=== PATIENT | female | born 1930 | race Caucasian/White ===

== ENCOUNTER → 2016-11-23 | Outpatient (CLI) | payer OTHER ==
[~2016-11-23] MED LIST: ALENDRONATE SOD70 MG PO; ANTIVERT25 MG PO; CARDIZEM CD240 MG PO; CARVEDILOL6.25 MG PO; COLACE100 MG PO; COREG3.125 MG PO; COZAAR100 MG PO; FENTANYL PA12 MCG/H1 TRANSDERM; FENTANYL PA25 MCG/HR; FENTANYL PATCH75 MCG TRANSDERM; KEFLEX500 MG PO; MIRALAX17 GM PO; NORCO 5-325 TA1 EACH PO; NORVASC5 MG PO; PAXIL10 MG; PAXIL10 MG PO; PERCOCET 5-3251 EACH PO; SENNA PO; TRAMADOL 50 MG50 MG PO; VITAMIN D1000 UNI1 PO; VITAMIN D2000 UNIT PO; ZANTAC 150MG T150 MG PO; ZOFRAN ODT4 MG PO; ZOSTAVAX V19400 UNIT SQ
== END ==
LOC: HYPER 11-17 08:54
DX: S81.812A Laceration without foreign body, left lower leg, initial encounter (principal); I10 Essential (primary) hypertension; K21.9 Gastro-esophageal reflux disease without esophagitis; Z85.3 Personal history of malignant neoplasm of breast; Z90.710 Acquired absence of both cervix and uterus; Z72.89 Other problems related to lifestyle; X58.XXXA Exposure to other specified factors, initial encounter; Y93.89 Activity, other specified; Y92.89 Other specified places as the place of occurrence of the external cause; Y99.8 Other external cause status

== ENCOUNTER → 2016-12-21 | Outpatient (CLI) | payer OTHER | LOC: HYPER 07:20 | DX: S81.802D Unspecified open wound, left lower leg, subsequent encounter (principal); I10 Essential (primary) hypertension; K29.70 Gastritis, unspecified, without bleeding; M17.10 Unilateral primary osteoarthritis, unspecified knee; F41.8 Other specified anxiety disorders; Z98.49 Cataract extraction status, unspecified eye; Z90.710 Acquired absence of both cervix and uterus; Z85.3 Personal history of malignant neoplasm of breast; Z72.89 Other problems related to lifestyle ==

== ENCOUNTER 2018-02-09 23:21 | Inpatient (IN) | payer OTHER ==
[~2018-02-09] VITALS: Ht 152.4 cm; Wt 54.4 kg
[~2018-02-09 23:21] MED LIST changes: +COZAAR 25 MG TA25 MG PO; -COZAAR100 MG PO; -VITAMIN D2000 UNIT PO
[2018-02-09 23:24] VITALS: BP 118/52
[2018-02-10] LABS: ABSOLUTE NEUTROPHILS 4.6 thou/uL (1.4-8.2); BASOPHILS 0.7 % (0.0-2.0); HEMATOCRIT 31.8 % (37.0-47.0); HEMOGLOBIN 10.8 gm/dL (12.0-15.0); LYMPHOCYTES 4.8 % (24.0-44.0); MCH 28.7 pg (26.0-34.0); MCV 84.2 fL (80.0-100.0); MONOCYTES 11.3 % (1.0-8.0); PLATELET COUNT 250 thou/uL (150-400); POLYS 81.2 % (36.0-66.0); RBC 3.77 mil/uL (4.20-5.00); WBC 5.7 thou/uL (4.0-11.0)
[2018-02-10 00:07] LABS: POTASSIUM 4.6 mmol/L (3.5-5.1)
[2018-02-10 00:13] LABS: ALBUMIN 3.2 g/dL (3.4-5.0); TOTAL BILIRUBIN 0.4 mg/dL (<0.1-1.0); TOTAL PROTEIN 6.5 g/dL (6.4-8.2)
[2018-02-10] MEDS ORDERED: ACIDOPHILUS1 EAC4 PO (00:45)
[2018-02-10] MEDS ORDERED: FLOMAX0.4 MG PO (00:46)
[2018-02-10] MEDS ORDERED: LIPITOR 20 MG T20 M1 PO (00:46)
[2018-02-10] MEDS ORDERED: NIFEDIPINE ER30 MG PO (01:13)
[2018-02-10] MEDS ORDERED: NEURONTIN100 MG PO (01:13)
[2018-02-10] MEDS ORDERED: PLAVIX 75 MG TA75 M1 PO (01:14)
[2018-02-10] MEDS ORDERED: SODIUM CHLORIDE PO (01:15)
[2018-02-10] MEDS ORDERED: SODIUM CHLORIDE TAB PO (01:15)
[2018-02-10] MEDS ORDERED: TYLENOL325 MG PO (01:16)
[2018-02-10] MEDS ORDERED: VITAMIN B-12500 MCG PO (02:09)
[2018-02-10] MEDS ORDERED: PREMARIN0.625 MG PO (02:10)
[2018-02-10] MEDS ORDERED: VOLTAREN GEL 1100 G1 TRANSDERM (02:10)
[2018-02-10] MEDS ORDERED: PROLOPRIM100 MG (02:11)
[2018-02-10 02:13] VITALS: BP 124/54
[2018-02-10 03:02] VITALS: BP 123/55
[2018-02-10 07:55] VITALS: BP 141/68
[2018-02-10 15:20] VITALS: BP 128/59
[2018-02-10 19:27] VITALS: BP 126/57
[2018-02-11 09:04] VITALS: BP 136/70
[2018-02-11 16:31] VITALS: BP 136/70
[2018-02-11 17:59] VITALS: BP 136/70
[2018-02-11 20:36] VITALS: BP 153/74
[2018-02-12 08:27] VITALS: BP 131/62
[2018-02-12] MEDS ORDERED: LIDOPATCH1 EACH TRANSDERM (11:18)
[2018-02-12] MEDS ORDERED: HYDROCODONE-AP1 EAC6 PO (11:18)
== END 2018-02-12 13:53 | DRG 52 ==
LOC: ER 23:21 → 2N 02-10 01:37 → EROBS 02-10 01:37 → 2N 02-10 02:33
PROVIDERS: Emergency Medicine
DX: S24.102A Unspecified injury at T2-T6 level of thoracic spinal cord, initial encounter (principal); S34.103A Unspecified injury to L3 level of lumbar spinal cord, initial encounter; E87.1 Hypo-osmolality and hyponatremia; M43.8X6 Other specified deforming dorsopathies, lumbar region; J45.909 Unspecified asthma, uncomplicated; I10 Essential (primary) hypertension; K21.9 Gastro-esophageal reflux disease without esophagitis; E78.5 Hyperlipidemia, unspecified; S40.012A Contusion of left shoulder, initial encounter; R29.6 Repeated falls; M62.84 Sarcopenia; K59.00 Constipation, unspecified; N32.81 Overactive bladder; M19.90 Unspecified osteoarthritis, unspecified site; R26.9 Unspecified abnormalities of gait and mobility; M43.8X4 Other specified deforming dorsopathies, thoracic region; Z96.1 Presence of intraocular lens; W18.39XA Other fall on same level, initial encounter; Y93.89 Activity, other specified; Y92.098 Other place in other non-institutional residence as the place of occurrence of the external cause; Y99.8 Other external cause status; Z90.710 Acquired absence of both cervix and uterus; Z98.42 Cataract extraction status, left eye; Z98.41 Cataract extraction status, right eye; Z86.73 Personal history of transient ischemic attack (TIA), and cerebral infarction without residual deficits; Z87.81 Personal history of (healed) traumatic fracture; Z79.02 Long term (current) use of antithrombotics/antiplatelets; Z79.899 Other long term (current) drug therapy; Z88.5 Allergy status to narcotic agent
CPT/HCPCS: 10194

== ENCOUNTER 2018-03-24 15:18 | Inpatient (IN) | payer OTHER ==
[~2018-03-24] VITALS: Ht 152.4 cm; Wt 56.7 kg
[2018-03-24] VITALS (7 sets, daily range): BP systolic 133–221; BP diastolic 53–111
--- NOTE | ~2018-03-24 | EKG ---
[address] [address] ELECTROCARDIOGRAM REPORT Name: MARYSOL GUTHRIE Room #: 429-P DIS IN M.R.#: [id number] Admission: 03/24/18 Attend Phys: Julien Lopez MD Discharge: 03/26/18 Date of : [birth year] Report #: [id number] THIS REPORT FOR: //name// [facility] ED Test Date: 2018-03-24 Test Time: 15:20:08 Pat Name: MARYSOL GUTHRIE Department: Room: 429 Gender: F Manager Of Creative Services: FLAVIA : 1930 Requested By: Starla Reyes Order Number: [id number] MD: Vernon Gaines Measurements Intervals [place] Rate: 88 P: 18 MI: 163 QRS: -21 QRSD: 90 T: 157 QT: 366 QTc: 443 Interpretive Statements Sinus rhythm Probable LVH with secondary repol abnrm No previous ECG available for comparison Electronically Signed On 03-28-2018 17:03:53 CDT by Vernon Gaines [email or web address] <ELECTRONICALLY SIGNED> By: Vernon Gaines MD 03/28/18 1703 1520 1520 Vernon Gaines MD /MIRNA
[~2018-03-24 15:18] MED LIST changes: +ACIDOPHILUS1 EAC4 PO; +FLOMAX0.4 MG PO; +HYDROCODONE-AP1 EAC6 PO; +LIDOPATCH1 EACH TRANSDERM; +LIPITOR 20 MG T20 M1 PO; +NEURONTIN100 MG PO; +NIFEDIPINE ER30 MG PO; +PLAVIX 75 MG TA75 M1 PO; +PREMARIN0.625 MG PO; +PROLOPRIM100 MG; +SODIUM CHLORIDE PO; +SODIUM CHLORIDE TAB PO; +TYLENOL325 MG PO; +VITAMIN B-12500 MCG PO; +VOLTAREN GEL 1100 G1 TRANSDERM
[2018-03-24 16:02] LABS: ABSOLUTE NEUTROPHILS 4.9 thou/uL (1.4-8.2); BASOPHILS 1.1 % (0.0-2.0); EOSINOPHILS 4.1 % (0.0-3.0); HEMATOCRIT 35.9 % (37.0-47.0); HEMOGLOBIN 12.3 gm/dL (12.0-15.0); LYMPHOCYTES 20.7 % (24.0-44.0); MCH 28.9 pg (26.0-34.0); MCHC 34.2 g/dL (28.0-37.0); MCV 84.3 fL (80.0-100.0); MONOCYTES 9.1 % (1.0-8.0); PLATELET COUNT 254 thou/uL (150-400); RBC 4.25 mil/uL (4.20-5.00); RDW 15.2 % (10.5-14.5); WBC 7.5 thou/uL (4.0-11.0)
[2018-03-24 16:14] LABS: ANION GAP 12 mmol/L (7-16); BUN 11 mg/dL (7-18); CALCIUM 9.3 mg/dL (8.5-10.1); CHLORIDE 99 mmol/L (98-107); CO2 24 mmol/L (21-32); CREATININE 0.7 mg/dL (0.6-1.0); GLUCOSE 122 mg/dL (74-106); POTASSIUM 3.4 mmol/L (3.5-5.1); SODIUM 135 mmol/L (136-145)
[2018-03-24 16:17] LABS: APTT 23.3 Seconds (24.5-32.8); PROTIME 10.5 Seconds (9.3-11.4)
[2018-03-24 16:20] LABS: ALBUMIN 3.3 g/dL (3.4-5.0); SGOT 14 U/L (15-37); SGPT 15 U/L (30-65); TOTAL BILIRUBIN 0.4 mg/dL (<0.1-1.0); TOTAL PROTEIN 6.6 g/dL (6.4-8.2); TROPONIN-I <0.06 ng/mL (<0.06)
[2018-03-24] MEDS ORDERED: ASPIR 8181 MG PO (16:23)
[2018-03-24] MEDS ORDERED: CELEBREX 200 M200 M1 PO (16:24)
[2018-03-24 16:26] LABS: URINE BILIRUBIN NEGATIVE (Negative); URINE BLOOD NEGATIVE (Negative); URINE CLARITY CLEAR; URINE COLOR YELLOW; URINE GLUCOSE-RANDOM* NEGATIVE (Negative); URINE KETONES NEGATIVE (Negative); URINE PROTEIN (DIPSTICK) NEGATIVE (Negative); URINE UROBILINOGEN 0.2 E.U./dl (0.2-1.0)
[2018-03-24] MEDS ORDERED: MELATIN3 MG PO (16:26)
[2018-03-24] MEDS ORDERED: SODIUM CHLORIDE1 GM PO (16:27)
[2018-03-24 16:29] LABS: URINE LEUKOCYTES-REFLEX TRACE (Negative); URINE NITRITE-REFLEX POSITIVE (Negative)
[2018-03-24 16:39] LABS: BACTERIA-REFLEX >30 Many /HPF (None Seen); COARSE GRANULAR CASTS 0-3 Few /LPF (None Seen); CRYSTALS None Seen /LPF (None Seen); HYALINE CASTS 0-3 Few /LPF (None Seen); SQUAMOUS 4-10 Moderate /LPF (0-3); URINE RBC 0-2 Rare /HPF (0-2); URINE WBC-REFLEX 6-15 Few /HPF (0-5)
[2018-03-25 03:44] VITALS: BP 185/79
[2018-03-25 03:45] VITALS: BP 189/78
[2018-03-25 06:14] LABS: ABSOLUTE NEUTROPHILS 5.4 thou/uL (1.4-8.2); BASOPHILS 0.8 % (0.0-2.0); EOSINOPHILS 4.2 % (0.0-3.0); HEMATOCRIT 39.8 % (37.0-47.0); HEMOGLOBIN 13.5 gm/dL (12.0-15.0); LYMPHOCYTES 17.9 % (24.0-44.0); MCH 28.7 pg (26.0-34.0); MCV 84.4 fL (80.0-100.0); MONOCYTES 8.4 % (1.0-8.0); PLATELET COUNT 260 thou/uL (150-400); POLYS 68.7 % (36.0-66.0); RBC 4.71 mil/uL (4.20-5.00); RDW 15.8 % (10.5-14.5); WBC 7.8 thou/uL (4.0-11.0)
[2018-03-25 06:25] LABS: CALCIUM 9.5 mg/dL (8.5-10.1); CREATININE 0.5 mg/dL (0.6-1.0); MAGNESIUM 1.8 mg/dL (1.8-2.4); POTASSIUM 3.8 mmol/L (3.5-5.1)
[2018-03-25 06:41] LABS: CHOLESTEROL 172 mg/dL (<200); HDL CHOLESTEROL 48 mg/dL (>40); LDL CHOLESTEROL 93 mg/dL (<100); TC:HDL 3.6 Ratio (Not establshd); TRIGLYCERIDE 155 mg/dL (<150); VLDL 31 mg/dL (<40)
[2018-03-25 07:22] VITALS: BP 179/96
[2018-03-25 15:13] VITALS: BP 154/92
[2018-03-25 20:00] VITALS: BP 157/71
[2018-03-26 04:30] VITALS: BP 188/80
[2018-03-26 07:33] VITALS: BP 151/83
[2018-03-26] MEDS ORDERED: HYDRALAZINE 2525 MG PO (12:10)
[2018-03-26] MEDS ORDERED: CARVEDILOL25 MG PO (12:10)
[2018-03-26 12:29] VITALS: BP 151/83
== END 2018-03-26 13:15 | disposition home or self-care (01) | DRG 689 ==
LOC: ER 15:18 → 4E 16:56 → EROBS 16:56 → 4E 18:22
PROVIDERS: Nurse Practitioner; Student in an Organized Health Care Education/Training Program
DX: N39.0 Urinary tract infection, site not specified (principal); G93.41 Metabolic encephalopathy; G45.9 Transient cerebral ischemic attack, unspecified; J45.909 Unspecified asthma, uncomplicated; Z96.1 Presence of intraocular lens; I10 Essential (primary) hypertension; K21.9 Gastro-esophageal reflux disease without esophagitis; E78.5 Hyperlipidemia, unspecified; M16.0 Bilateral primary osteoarthritis of hip; M47.9 Spondylosis, unspecified; E87.6 Hypokalemia; R26.9 Unspecified abnormalities of gait and mobility; M62.84 Sarcopenia; M19.012 Primary osteoarthritis, left shoulder; Z86.73 Personal history of transient ischemic attack (TIA), and cerebral infarction without residual deficits; Z87.311 Personal history of (healed) other pathological fracture; Z90.710 Acquired absence of both cervix and uterus; Z98.42 Cataract extraction status, left eye; Z98.41 Cataract extraction status, right eye; Z79.82 Long term (current) use of aspirin; Z79.899 Other long term (current) drug therapy; Z88.5 Allergy status to narcotic agent
CPT/HCPCS: 10183

== ENCOUNTER → 2018-04-01 | Outpatient (CLI) | payer OTHER ==
[~2018-04-01] MED LIST changes: +ASPIR 8181 MG PO; +B-12500 MCG PO; +CARVEDILOL25 MG PO; +CELEBREX 200 M200 M1 PO; +COREG25 MG PO; +HYDRALAZINE 2525 MG PO; +MELATIN3 MG PO; +PANTOPRAZOLE SO40 M1 PO; +SODIUM CHLORIDE1 GM PO
== END ==
LOC: MRI 12:39
DX: S46.912A Strain of unspecified muscle, fascia and tendon at shoulder and upper arm level, left arm, initial encounter (principal); M19.012 Primary osteoarthritis, left shoulder; M25.412 Effusion, left shoulder; I10 Essential (primary) hypertension; E78.5 Hyperlipidemia, unspecified; K21.9 Gastro-esophageal reflux disease without esophagitis; M19.90 Unspecified osteoarthritis, unspecified site; J45.909 Unspecified asthma, uncomplicated; X58.XXXA Exposure to other specified factors, initial encounter; Y93.89 Activity, other specified; Y92.89 Other specified places as the place of occurrence of the external cause; Y99.8 Other external cause status

== ENCOUNTER 2018-04-11 12:54 | Inpatient (IN) | payer OTHER ==
[~2018-04-11] VITALS: Ht 157.5 cm; Wt 51.7 kg
--- NOTE | ~2018-04-11 | PATH ---
[facility] [place] [address] PATHOLOGY RPT PROCEDURE Name: JERRIMARYSOL Room #: 359-P DIS IN M.R.#: [id number] Admission: 04/11/18 Date of : [birth year] Discharge: 04/13/18 Report #: [id number] Path Case #: [id number] [facility] Accession Number: [id number] . 01 Material submitted: . GASTRITIS BX R/O H PYLORI . 01 Clinician provided ICD-10: K92.2 K92.1 . 01 Clinical history: . Pre-OP DX: GI bleed, melena Post-OP DX: Gastritis . 02 Diagnosis: Gastric mucosa, gastritis, endoscopic biopsy: - Helicobacter pylori induced moderate active gastritis. - Negative for intestinal metaplasia, or atrophy or dysplasia. - Well-controlled immunohistochemical stain performed. . (IUV:at;04/13/2018) QTA/04/13/2018 . 02 Electronically signed: . Yissel Ramos MD, Pathologist NPI- [id number] . 01 Gross description: . Received in formalin labeled "Jerri, Marysol, gastritis BX, rule out H. pylori," are 3 segments of yi soft tissue measuring 1.2 x 0.6 x 0.3 cm in aggregate dimensions and ranging from 0.3 to 0.5 cm in maximum dimension. The specimen is submitted entirely in cassette A1. (TSD; 04/12/2018) TOB/TOB . 02 Pathologist provided ICD-10: K29.70, B96.81 . 02 CPT . 151262, A65021 Specimen Comment: A courtesy copy of this report has been sent to Specimen Comment: [phone], , . Specimen Comment: Report sent to ,DR ERAZO, / DR SCHROEDER Specimen Comment: A duplicate report has been generated due to demographic updates. Performed at: [address] [place] [address] PATHOLOGY RPT PROCEDURE Name: MARYSOL GUTHRIE Room #: 359-P DIS IN M.R.#: [id number] Admission: 04/11/18 Date of : [birth year] Discharge: 04/13/18 Report #: [id number] Path Case #: [id number] [facility] [place] [address] [facility] [address], [place] [id number] MD Bobby Sood MD Phone: [phone] Performed at: [address] [id number] MD Yissel Ramos MD Phone: [phone]
--- NOTE | ~2018-04-11 | EKG ---
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
--- NOTE | ~2018-04-11 | P ---
[facility] [place] [address] [address] [place] [address] PROCEDURE REPORT Name: MARYSOL GUTHRIE Room #: 359-P [facility] IN M.R.#: [id number] Admission: 04/11/18 Attend Phys: Armin Finney MD Discharge: 04/13/18 Date of : [birth year] Report #: [id number] THIS REPORT FOR: //name// CC: Anna Finney DATE OF SERVICE: 04/12/2018 BRIEF HISTORY: The patient is an 87-year-old woman who was admitted with melanotic stools. She has been on Plavix and aspirin and she has also been taking Celebrex. PREOPERATIVE DIAGNOSIS: Upper gastrointestinal bleeding requiring transfusion. POSTOPERATIVE DIAGNOSES: 1. Nonbleeding ulcers, duodenal bulb. 2. Erosive gastritis with erosions in antrum and body of the stomach. 3. Small to moderate size sliding type hiatus hernia. 4. Duodenal stricture, junction of bulb and second portion. MEDICATIONS: Deep sedation with propofol per anesthesia. SPECIMEN: Biopsy of gastritis, rule out Helicobacter pylori. ESTIMATED BLOOD LOSS: 3 mL. PROCEDURE: EGD with biopsy. FINDINGS: Prior to propofol sedation, the procedure of upper endoscopy discussed with the patient as well as potential risks and its complications. She indicates she understands and desires to proceed. DESCRIPTION OF THE PROCEDURE: Due to shoulder injury and pain on her left shoulder, the procedure was done in the prone position with the head of her bed elevated about 30 degrees. Subsequently, the Olympus video endoscope was inserted in the cervical esophagus under direct vision without difficulty. Examination of this organ through its entire length revealed normal esophageal mucosa down the squamocolumnar junction. Squamocolumnar junction was unremarkable. No evidence of ulcers, erosions, mass lesions, Johnson mucosa or bleeding. A small to moderate size sliding type hiatus hernia was intermittently seen. There was no blood within the hernia and the mucosa was normal within the hernia sac. Scope was advanced into the stomach, which was examined on end view as well as retroflexed views. There was no blood within the stomach. Examination of the antrum revealed multiple erosions of the antrum and stomach. No ulcers were seen. No bleeding lesions were seen. Examination [facility] [address] [place] [address] PROCEDURE REPORT Name: MARYSOL GUTHRIE Room #: 359-P DIS IN M.R.#: [id number] Admission: 04/11/18 Attend Phys: Armin Finney MD Discharge: 04/13/18 Date of : [birth year] Report #: [id number] of the body revealed multiple erosions along the lesser curvature aspect of the body of the stomach. No blood was seen and bleeding was not identified. There were no clots. Upon retroflexion, hiatus hernia was seen, but no other abnormalities were identified. The pylorus was normal. Examination of duodenal bulb revealed 2 small ulcers, one was of modest depth at the level of the stricture in the second portion of the duodenum. The second was a flat shallow ulcer, no more than about 5 mm. No active bleeding was seen. No blood clots were seen. Again, the patient has a stricture at the junction of the bulb and second portion of duodenum. The scope passed easily through the stricture. The scope was then advanced all the way to the ligament of Treitz. The mucosa was normal. There is no evidence of blood clot or bleeding. At that point, the scope was slowly withdrawn and careful circumferential views confirmed the above finding. Biopsies obtained of the gastritis and patient tolerated the procedure well. DISPOSITION: The patient with GI bleeding, who presented with melena. She is on Plavix, aspirin and also Celebrex. Small ulcers identified as noted above. Continue PPI therapy. Follow up on biopsies. If positive for H. pylori, she may benefit from antibiotic treatment. Continue PPI at this point in time. If further bleeding, consider colonoscopy and/or capsule study depending on clinical course. <ELECTRONICALLY SIGNED> By: Khari Fontenot MD 04/14/18 1220 1526 [id number] Khari Fontenot MD /nt
[~2018-04-11 12:54] MED LIST changes: -B-12500 MCG PO; -COREG25 MG PO; -PANTOPRAZOLE SO40 M1 PO
[2018-04-11 12:55] VITALS: BP 145/61
[2018-04-11 13:30] LABS: BASOPHILS 0.6 % (0.0-2.0); EOSINOPHILS 2.2 % (0.0-3.0); HEMATOCRIT 26.2 % (37.0-47.0); HEMOGLOBIN 8.9 gm/dL (12.0-15.0); LYMPHOCYTES 11.1 % (24.0-44.0); MCH 29.3 pg (26.0-34.0); MCV 86.2 fL (80.0-100.0); MONOCYTES 7.3 % (1.0-8.0); PLATELET COUNT 244 thou/uL (150-400); POLYS 78.8 % (36.0-66.0); RBC 3.04 mil/uL (4.20-5.00); RDW 15.9 % (10.5-14.5); WBC 11.4 thou/uL (4.0-11.0)
[2018-04-11 14:45] LABS: URINE BILIRUBIN NEGATIVE (Negative); URINE BLOOD 2+ (Negative); URINE CLARITY CLEAR; URINE COLOR YELLOW; URINE GLUCOSE-RANDOM* NEGATIVE (Negative); URINE KETONES NEGATIVE (Negative); URINE LEUKOCYTES-REFLEX NEGATIVE (Negative); URINE NITRITE-REFLEX NEGATIVE (Negative); URINE PROTEIN (DIPSTICK) NEGATIVE (Negative); URINE UROBILINOGEN 0.2 E.U./dl (0.2-1.0)
[2018-04-11 14:58] LABS: CASTS None Seen /LPF (None Seen); CRYSTALS None Seen /LPF (None Seen); SQUAMOUS 0-3 Few /LPF (0-3); URINE WBC-REFLEX 0-5 Rare /HPF (0-5)
[2018-04-11 14:59] LABS: BACTERIA-REFLEX 1-9 Few /HPF (None Seen); URINE RBC 0-2 Rare /HPF (0-2)
[2018-04-11 15:49] LABS: PROTIME 10.3 Seconds (9.3-11.4)
[2018-04-11 15:51] LABS: APTT 21.1 Seconds (24.5-32.8)
[2018-04-11 17:18] VITALS: BP 145/61
[2018-04-11] MEDS ORDERED: COREG25 MG PO (17:36)
[2018-04-11 17:55] VITALS: BP 143/62
[2018-04-11 18:40] VITALS: BP 134/63
[2018-04-11 19:50] VITALS: BP 127/62
[2018-04-11 20:56] LABS: HEMATOCRIT 23.4 % (37.0-47.0)
[2018-04-12 00:30] VITALS: BP 121/60
[2018-04-12 04:25] LABS: HEMATOCRIT 21.4 % (37.0-47.0); HEMOGLOBIN 7.2 gm/dL (12.0-15.0); MCH 28.8 pg (26.0-34.0); MCHC 33.6 g/dL (28.0-37.0); MCV 85.7 fL (80.0-100.0); RBC 2.5 mil/uL (4.20-5.00); RDW 16.1 % (10.5-14.5); WBC 7.1 thou/uL (4.0-11.0)
[2018-04-12 04:40] LABS: CALCIUM 8.3 mg/dL (8.5-10.1); CREATININE 0.6 mg/dL (0.6-1.0); POTASSIUM 3.6 mmol/L (3.5-5.1)
[2018-04-12 05:00] VITALS: BP 133/69
[2018-04-12 08:15] VITALS: BP 120/65
[2018-04-12 11:27] VITALS: BP 120/56
[2018-04-12 16:42] VITALS: BP 176/73
[2018-04-12 20:00] VITALS: BP 122/63
[2018-04-13 04:00] VITALS: BP 146/56
[2018-04-13 06:12] LABS: HEMOGLOBIN 8.9 gm/dL (12.0-15.0); MCH 29.7 pg (26.0-34.0); MCV 87.4 fL (80.0-100.0); RBC 2.98 mil/uL (4.20-5.00); RDW 15.6 % (10.5-14.5); WBC 7.5 thou/uL (4.0-11.0)
[2018-04-13 07:31] VITALS: BP 134/50
[2018-04-13] MEDS ORDERED: B-12500 MCG PO (08:42)
[2018-04-13] MEDS ORDERED: PANTOPRAZOLE SO40 M1 PO (08:42)
[2018-04-13 11:19] VITALS: BP 134/50
== END 2018-04-13 12:27 | DRG 377 ==
LOC: ER 12:54 → 3W 15:27 → EROBS 15:27 → 3W 18:30 → ENTRNSPT 04-13 12:20 → EDTRNSPTSTS 04-13 12:21 → 3W 04-13 12:27
PROVIDERS: Emergency Medicine; Hospitalist; Nurse Practitioner; Physician Assistant; Specialist
PROC: 0DB68ZX Excision of Stomach, Via Natural or Artificial Opening Endoscopic, Diagnostic (ICD-10-PCS; principal; 2018-04-12)
PROC: 30233N1 Transfusion of Nonautologous Red Blood Cells into Peripheral Vein, Percutaneous Approach (ICD-10-PCS; principal; 2018-04-12)
DX: K26.4 Chronic or unspecified duodenal ulcer with hemorrhage (principal); G93.41 Metabolic encephalopathy; K31.5 Obstruction of duodenum; D62 Acute posthemorrhagic anemia; E46 Unspecified protein-calorie malnutrition; K29.00 Acute gastritis without bleeding; K44.9 Diaphragmatic hernia without obstruction or gangrene; J45.909 Unspecified asthma, uncomplicated; K21.9 Gastro-esophageal reflux disease without esophagitis; I10 Essential (primary) hypertension; E78.5 Hyperlipidemia, unspecified; M16.0 Bilateral primary osteoarthritis of hip; M47.9 Spondylosis, unspecified; M19.012 Primary osteoarthritis, left shoulder; M19.90 Unspecified osteoarthritis, unspecified site; M62.84 Sarcopenia; Z79.1 Long term (current) use of non-steroidal anti-inflammatories (NSAID); Z23 Encounter for immunization; Z86.73 Personal history of transient ischemic attack (TIA), and cerebral infarction without residual deficits; Z90.710 Acquired absence of both cervix and uterus; Z98.42 Cataract extraction status, left eye; Z98.41 Cataract extraction status, right eye; Z62.813 Personal history of forced labor or sexual exploitation in childhood; Z88.6 Allergy status to analgesic agent; Z85.3 Personal history of malignant neoplasm of breast; Z86.010 Personal history of colon polyps; Z79.82 Long term (current) use of aspirin; Z79.899 Other long term (current) drug therapy; Z68.20 Body mass index [BMI] 20.0-20.9, adult
CPT/HCPCS: 10879; 62110; 62900; 70005

== ENCOUNTER 2018-04-16 22:02 | Emergency (ER) | payer OTHER ==
[~2018-04-16] VITALS: Ht 154.9 cm; Wt 50.4 kg
[~2018-04-16 22:02] MED LIST changes: +B-12500 MCG PO; +COREG25 MG PO; +PANTOPRAZOLE SO40 M1 PO
[2018-04-16 23:06] LABS: HEMATOCRIT 29.8 % (37.0-47.0); HEMOGLOBIN 10.2 gm/dL (12.0-15.0); MCH 29.6 pg (26.0-34.0); MCHC 34.1 g/dL (28.0-37.0); MCV 86.9 fL (80.0-100.0); RBC 3.43 mil/uL (4.20-5.00); RDW 15.4 % (10.5-14.5); WBC 10.2 thou/uL (4.0-11.0)
[2018-04-16 23:13] LABS: CALCIUM 8.3 mg/dL (8.5-10.1); CREATININE 0.5 mg/dL (0.6-1.0)
[2018-04-16 23:20] LABS: ALBUMIN 2.9 g/dL (3.4-5.0); TOTAL BILIRUBIN 0.3 mg/dL (<0.1-1.0); TOTAL PROTEIN 6.2 g/dL (6.4-8.2)
== END 2018-04-17 00:57 | disposition home or self-care (01) ==
LOC: ER 22:02
PROVIDERS: Emergency Medicine
DX: S00.03XA Contusion of scalp, initial encounter (principal); S51.802A Unspecified open wound of left forearm, initial encounter; M25.512 Pain in left shoulder; J45.909 Unspecified asthma, uncomplicated; I10 Essential (primary) hypertension; K21.9 Gastro-esophageal reflux disease without esophagitis; E78.5 Hyperlipidemia, unspecified; M16.0 Bilateral primary osteoarthritis of hip; M47.9 Spondylosis, unspecified; M19.012 Primary osteoarthritis, left shoulder; Z90.710 Acquired absence of both cervix and uterus; Z98.890 Other specified postprocedural states; Z90.89 Acquired absence of other organs; Z86.73 Personal history of transient ischemic attack (TIA), and cerebral infarction without residual deficits; Z88.5 Allergy status to narcotic agent; W18.39XA Other fall on same level, initial encounter; Y93.89 Activity, other specified; Y92.002 Bathroom of unspecified non-institutional (private) residence as the place of occurrence of the external cause; Y99.8 Other external cause status

== ENCOUNTER 2018-05-22 21:42 | Inpatient (IN) | payer OTHER ==
[~2018-05-22] VITALS: Ht 152.4 cm; Wt 51.3 kg
--- NOTE | ~2018-05-22 | EKG ---
[address] [place] [address] ELECTROCARDIOGRAM REPORT Name: MARYSOL GUTHRIE Room #: 357-P ADM IN M.R.#: [id number] Admission: 05/23/18 Attend Phys: Francois Niño MD Discharge: Date of : [birth year] Report #: [id number] THIS REPORT FOR: //name// [facility] ED Test Date: 2018-05-22 Test Time: 22:30:58 Pat Name: MARYSOL GUTHRIE Department: Room: 357 Gender: F Environmental Laboratory Technician: Tonio MORATAYA : 1930 Requested By: Starla Reyes Order Number: [id number] MD: Magdi Day Measurements Intervals [place] Rate: 77 P: 63 MN: 165 QRS: -18 QRSD: 88 T: 89 QT: 382 QTc: 433 Interpretive Statements Sinus rhythm Probable LVH with secondary repol abnrm Baseline wander in lead(s) III,V1 Compared to ECG 04/11/2018 13:11:51 No significant changes Electronically Signed On 05-23-2018 8:18:26 EQUAL OPPORTUNITY REPRESENTATIVE by Magdi Day [email or web address] <ELECTRONICALLY SIGNED> By: Magdi Day MD, FAC 05/23/18817 29 29 Magdi Day MD, [facility] /EPI
[~2018-05-22 21:42] MED LIST changes: -ASPIR 8181 MG PO; -PLAVIX 75 MG TA75 M1 PO
[2018-05-22 21:53] VITALS: BP 142/63
[2018-05-22 22:03] LABS: ABSOLUTE NEUTROPHILS 12.6 thou/uL (1.4-8.2); BASOPHILS 0.4 % (0.0-2.0); EOSINOPHILS 0.7 % (0.0-3.0); HEMATOCRIT 33.1 % (37.0-47.0); HEMOGLOBIN 11.2 gm/dL (12.0-15.0); LYMPHOCYTES 4.6 % (24.0-44.0); MCH 29.7 pg (26.0-34.0); MCHC 33.7 g/dL (28.0-37.0); MONOCYTES 5.5 % (1.0-8.0); PLATELET COUNT 233 thou/uL (150-400); POLYS 88.8 % (36.0-66.0); RBC 3.77 mil/uL (4.20-5.00); RDW 16.9 % (10.5-14.5); WBC 14.2 thou/uL (4.0-11.0)
[2018-05-22 22:12] LABS: CALCIUM 9.1 mg/dL (8.5-10.1); CREATININE 0.8 mg/dL (0.6-1.0); POTASSIUM 4.6 mmol/L (3.5-5.1)
[2018-05-22 22:18] LABS: ALBUMIN 3.2 g/dL (3.4-5.0); APTT 24.8 Seconds (24.5-32.8); TOTAL BILIRUBIN 0.5 mg/dL (<0.1-1.0); TOTAL PROTEIN 6.5 g/dL (6.4-8.2)
[2018-05-23] VITALS (8 sets, daily range): BP systolic 116–144; BP diastolic 58–83
[2018-05-23] MEDS ORDERED: IRON325 PO (00:56)
[2018-05-23] MEDS ORDERED: PROTONIX40 M1 PO (00:58)
[2018-05-23] MEDS ORDERED: SENNA8.6 MG PO (00:59)
[2018-05-23] MEDS ORDERED: COLACE100 MG PO (01:00)
[2018-05-23 04:06] LABS: HEMATOCRIT 33.1 % (37.0-47.0)
[2018-05-23 09:23] LABS: HEMATOCRIT 32.7 % (37.0-47.0); HEMOGLOBIN 11.2 gm/dL (12.0-15.0)
[2018-05-23 09:32] LABS: CALCIUM 8.7 mg/dL (8.5-10.1); CREATININE 0.6 mg/dL (0.6-1.0); POTASSIUM 4.1 mmol/L (3.5-5.1)
[2018-05-23 11:43] LABS: URINE BILIRUBIN NEGATIVE (Negative); URINE BLOOD 3+ (Negative); URINE COLOR YELLOW; URINE GLUCOSE-RANDOM* NEGATIVE (Negative); URINE KETONES NEGATIVE (Negative); URINE PROTEIN (DIPSTICK) NEGATIVE (Negative); URINE UROBILINOGEN 0.2 E.U./dl (0.2-1.0)
[2018-05-23 11:44] LABS: URINE CLARITY CLOUDY; URINE LEUKOCYTES-REFLEX 3+ (Negative); URINE NITRITE-REFLEX POSITIVE (Negative)
[2018-05-23 11:45] LABS: CASTS None Seen /LPF (None Seen); CRYSTALS None Seen /LPF (None Seen); SQUAMOUS None Seen /LPF (0-3)
[2018-05-23 11:46] LABS: URINE WBC-REFLEX >25 Many /HPF (0-5)
[2018-05-23 15:36] LABS: HEMATOCRIT 31.7 % (37.0-47.0); HEMOGLOBIN 10.8 gm/dL (12.0-15.0)
[2018-05-23 21:25] LABS: HEMATOCRIT 31.4 % (37.0-47.0); HEMOGLOBIN 10.7 gm/dL (12.0-15.0)
[2018-05-24 02:49] LABS: ABSOLUTE NEUTROPHILS 7.8 thou/uL (1.4-8.2); BASOPHILS 0.6 % (0.0-2.0); EOSINOPHILS 1.8 % (0.0-3.0); HEMATOCRIT 31.4 % (37.0-47.0); HEMOGLOBIN 10.3 gm/dL (12.0-15.0); LYMPHOCYTES 10.1 % (24.0-44.0); MCH 29.3 pg (26.0-34.0); MCHC 32.8 g/dL (28.0-37.0); MCV 89.4 fL (80.0-100.0); MONOCYTES 9.5 % (1.0-8.0); PLATELET COUNT 231 thou/uL (150-400); RBC 3.52 mil/uL (4.20-5.00); RDW 16.8 % (10.5-14.5); WBC 9.9 thou/uL (4.0-11.0)
[2018-05-24 02:57] LABS: CALCIUM 8.2 mg/dL (8.5-10.1); CREATININE 0.6 mg/dL (0.6-1.0); MAGNESIUM 1.6 mg/dL (1.8-2.4); POTASSIUM 4.3 mmol/L (3.5-5.1)
[2018-05-24 04:30] VITALS: BP 146/73
[2018-05-24 07:23] VITALS: BP 151/66
[2018-05-24 11:37] VITALS: BP 120/52
[2018-05-24] MEDS ORDERED: CLARITHROMYCIN250 M2 PO (12:42)
[2018-05-24] MEDS ORDERED: MAGNESIUM400 MG PO (12:42)
[2018-05-24] MEDS ORDERED: PANTOPRAZOLE SO40 M1 PO (12:42)
[2018-05-24] MEDS ORDERED: AMOXICILLIN 50500 M1 PO (12:42)
[2018-05-24] MEDS ORDERED: ASPIR 8181 MG PO (13:18)
[2018-05-24] MEDS ORDERED: PLAVIX 75 MG TA75 M1 PO (13:19)
[2018-05-24 14:54] VITALS: BP 120/52
[2018-05-24 15:20] VITALS: BP 141/57
== END 2018-05-24 16:24 | disposition home health service (06) | DRG 378 ==
LOC: ER 21:42 → 3W 05-23 00:03 → EROBS 05-23 00:03 → 3W 05-23 00:18
PROVIDERS: Internal Medicine; Nurse Practitioner; Nurse Practitioner Acute Care; Student in an Organized Health Care Education/Training Program
DX: K29.71 Gastritis, unspecified, with bleeding (principal); E87.1 Hypo-osmolality and hyponatremia; E46 Unspecified protein-calorie malnutrition; D62 Acute posthemorrhagic anemia; I10 Essential (primary) hypertension; E78.5 Hyperlipidemia, unspecified; J45.909 Unspecified asthma, uncomplicated; F03.90 Unspecified dementia, unspecified severity, without behavioral disturbance, psychotic disturbance, mood disturbance, and anxiety; M19.90 Unspecified osteoarthritis, unspecified site; R79.89 Other specified abnormal findings of blood chemistry; D55.9 Anemia due to enzyme disorder, unspecified; E53.8 Deficiency of other specified B group vitamins; M81.0 Age-related osteoporosis without current pathological fracture; K21.9 Gastro-esophageal reflux disease without esophagitis; Z96.1 Presence of intraocular lens; Z98.42 Cataract extraction status, left eye; Z90.710 Acquired absence of both cervix and uterus; Z98.41 Cataract extraction status, right eye; Z86.73 Personal history of transient ischemic attack (TIA), and cerebral infarction without residual deficits; Z79.02 Long term (current) use of antithrombotics/antiplatelets; Z79.82 Long term (current) use of aspirin; Z79.899 Other long term (current) drug therapy; Z88.5 Allergy status to narcotic agent
CPT/HCPCS: 10879